=== PATIENT | female | born 1950 | race Hispanic/Latino ===

== ENCOUNTER 2016-07-02 11:30 | Day surgery (SDC) | payer MEDICARE ==
[~2016-07-02 11:30] MED LIST: IOPIDINE OS ONE; MYDRIACYL OS ONE; NEOFRIN OS ONE
[2016-07-02] MEDS ORDERED: IOPIDINE OS ONE (12:34)
[2016-07-02] MEDS ORDERED: NEOFRIN OS ONE (12:34)
[2016-07-02] MEDS ORDERED: MYDRIACYL OS ONE (12:34)
[2016-07-02 13:28] VITALS: BP 140/84
== END 2016-07-02 13:21 | disposition home or self-care (01) ==
LOC: OR 11:30
PROVIDERS: ATTEND Specialist
DX: H26.492 Other secondary cataract, left eye (principal)